=== PATIENT | female | born 1955 | race Caucasian/White ===

== ENCOUNTER 2016-11-16 14:28 | Emergency (ER) | payer OTHER ==
[2016-11-16] MEDS ORDERED: NITROGLYCERIN 0.4 MG TAB SL PRN (14:55)
[2016-11-16] MEDS ORDERED: LORAZEPAM 2 MG/ML SOL IV ONE (14:55)
[2016-11-16 14:58] LABS: BASOPHILS % (AUTO) 2 % (0-3); EOSINOPHILS % (AUTO) 0 % (0-9); HEMATOCRIT 40 % (35-47); MEAN CORPUSCULAR HGB CONC 35.7 gm/dl (32.0-36.0); MEAN CORPUSCULAR VOLUME 83 fL (81-99); MONOCYTES % (AUTO) 18.8 % (0-12); NEUTROPHILS % (AUTO) 58.4 % (37-80)
[2016-11-16] MEDS ORDERED: ASPIRIN 325 MG TAB PO SCH (15:00)
[2016-11-16 15:03] LABS: GLOM FILT RATE 79 mL/min (>60); POTASSIUM 4.3 mMol/L (3.5-5.1); SODIUM 141 mMol/L (136-145)
[2016-11-16] MEDS ORDERED: ACETAMINOPHEN 500 MG 500 MG TAB PO ONE (15:48)
[2016-11-16] MEDS ORDERED: KETOROLAC TROMETHAMINE 30 MG/ML SOL IV ONE (15:48)
[2016-11-16 16:15] VITALS: RESP 18
[2016-11-16 16:21] VITALS: BP 156/86; PULSE 84; TEMP 102.4; O2SAT 97
== END 2016-11-16 16:57 | disposition home or self-care (01) | DRG 195 ==
LOC: ED 14:28
DX: J09.X2 Influenza due to identified novel influenza A virus with other respiratory manifestations (principal)
CPT/HCPCS: 36415; 71010; 80048; 84484; 85025; 87804; 93005; 96374; 96375; 99284; 99285; J2060

== ENCOUNTER 2018-12-06 07:25 | Day surgery (SDC) | payer BC ==
[2018-12-06] MEDS ORDERED: PROPOFOL 500 MG/50 ML EMU IV ONE ×2 (08:07)
[2018-12-06] MEDS ORDERED: LIDOCAINE HCL 1% MPF 30 SOL ONE (08:07)
[2018-12-06 09:34] VITALS: BP 128/75; PULSE 73; RESP 12; TEMP 98; O2SAT 97
== END 2018-12-06 10:03 | disposition home or self-care (01) ==
LOC: SURG 07:25
PROVIDERS: ATTEND Surgery
DX: Z12.11 Encounter for screening for malignant neoplasm of colon (principal); Z80.0 Family history of malignant neoplasm of digestive organs; K57.32 Diverticulitis of large intestine without perforation or abscess without bleeding; D12.2 Benign neoplasm of ascending colon; D12.3 Benign neoplasm of transverse colon
CPT/HCPCS: 99001; J2001; J2704